=== PATIENT | male | born 1945 | race Caucasian/White ===

== ENCOUNTER 2017-01-21 10:22 | Inpatient (IN) | payer OTHER ==
[~2017-01-21 10:22] MED LIST: ACETAMINOPHEN 325 MG TAB PO ONE; CEFAZOLIN 2 GM/DEXTR 100 ML IV ONE; CHLORHEXIDINE GLUC HIBICLENS 118 ML BTL TP ONE; DEXAMETHASONE 4 MG/ML VIAL IVP ONE; FAMOTIDINE 20 MG TAB PO ONE; ROPI/epiNEPH/KETOROLAC JOINT COCKTAIL IU ONE; TRANEXAMIC ACID 3,000 MG in NS 50 ML IRR ONE
[2017-01-21] MEDS ORDERED: TRANEXAMIC ACID 3,000 MG/50 ML BAG IRR ONE (10:39)
[2017-01-21] MEDS ORDERED: FAMOTIDINE 20 MG TAB ONE (10:51)
[2017-01-21] MEDS ORDERED: LIDOCAINE 1% 2 ML INJ ONE (10:51)
[2017-01-21] MEDS ORDERED: DEXAMETHASONE 4 MG/ML VIAL ONE (10:51)
[2017-01-21] MEDS ORDERED: CEFAZOLIN 2 GM/DEXTROSE/100 ML BAG IV ONE (10:51)
[2017-01-21] MEDS ORDERED: ACETAMINOPHEN 325 MG TAB ONE (10:51)
[2017-01-21] MEDS ORDERED: LR 1,000 ML IV ONE (11:52)
[2017-01-21] MEDS ORDERED: LIDOCAINE 1% 5 ML SDV ID PRN (11:52)
[2017-01-21] MEDS ORDERED: MIDAZOLAM 2 MG/2 ML VIAL ONE (12:10)
[2017-01-21] MEDS ORDERED: PROPOFOL/EMULSION 500 MG/50 ML BOTTLE IV ONE ×2 (12:38→13:17)
[2017-01-21] MEDS ORDERED: diphenhydrAMINE 25 MG CAP PO PRN (12:55)
[2017-01-21] MEDS ORDERED: TEMAZEPAM 15 MG CAP PO PRN (12:55)
[2017-01-21] MEDS ORDERED: ONDANSETRON 4 MG/2 ML VIAL IVP PRN (12:55)
[2017-01-21] MEDS ORDERED: PROMETHAZINE HCL 25 MG SUPPR PR PRN (12:55)
[2017-01-21] MEDS ORDERED: POLYETHYLENE GLYCOL 3350 17 GM PKT PO PRN (12:55)
[2017-01-21] MEDS ORDERED: MAGNESIUM HYDROXIDE 30 ML UDCUP PO PRN (12:55)
[2017-01-21] MEDS ORDERED: PHARMACY PAIN CONSULT 1 EA MISC PRN (12:55)
[2017-01-21] MEDS ORDERED: BISACODYL 10 MG SUPP PR PRN (12:55)
[2017-01-21] MEDS ORDERED: METOCLOPRAMIDE 10 MG/2 ML VIAL IVP PRN (12:55)
[2017-01-21] MEDS ORDERED: LACTULOSE 20 GM/30 ML UDCUP PO PRN (12:55)
[2017-01-21] MEDS ORDERED: DIPHENOXYLATE/ATROPINE LOMOTIL 1 TAB PO PRN (12:55)
[2017-01-21] MEDS ORDERED: ONDANSETRON DISINTEGRATING 4 MG TAB PO PRN (12:55)
[2017-01-21] MEDS ORDERED: DIAZEPAM 5 MG TAB PO PRN (12:58)
[2017-01-21] MEDS ORDERED: LR 1,000 ML IV SCH (13:00)
--- NOTE | 2017-01-21 13:39 | POSTOPPROG ---
Post Op Note Date of Operation: 01/21/17 Surgeon: Anju James Marine Specialist: Juliann James PAc Anesthesiologist: Syd Anesthesia: Spinal Pre-op Diagnosis: L hip djd Post-op Diagnosis: same Indication: pain Procedure: L LAUREANO Findings: DJD hip Inf/Abcess present in the surg proc area at time of surgery?: No EBL: 100-500
[2017-01-21] MEDS: oxyCODONE IR 5 MG TAB PO PRN ×3 (16:44→23:45)
[2017-01-21] MEDS ORDERED: ATORVASTATIN CALCIUM 10 MG TAB PO SCH (18:00)
[2017-01-21] MEDS ORDERED: CARVEDILOL 6.25 MG TAB PO SCH (18:00)
[2017-01-21] MEDS: ACETAMINOPHEN 325 MG TAB PO SCH ×2 (18:30→23:45)
[2017-01-21] MEDS: CARVEDILOL 6.25 MG TAB PO SCH (19:47)
[2017-01-21] MEDS: CYCLOBENZAPRINE 10 MG TAB PO PRN (19:48)
[2017-01-21] MEDS: FAMOTIDINE 20 MG TAB PO SCH (19:48)
[2017-01-21] MEDS: ASPIRIN 325 MG TAB PO SCH (19:48)
[2017-01-21] MEDS: SENNOSIDES/DOCUSATE SODIUM TAB PO SCH (19:49)
[2017-01-21] MEDS: ceFAZolin 2 GM/DEXTROSE 100 ML IV SCH (19:51)
--- NOTE | 2017-01-22 04:16 | GOP ---
[f rep st] OPERATIVE REPORT DATE OF OPERATION: 01/21/2017 SURGEON: Helen James MD [employer] TEAM LEADER: PHILL Garrett ANESTHESIA: Spinal. PREOPERATIVE DIAGNOSIS: Left hip osteoarthritis. POSTOPERATIVE DIAGNOSIS: Left hip osteoarthritis. PROCEDURE PERFORMED: Total hip arthroplasty with x-ray. FINDINGS: ESTIMATED BLOOD LOSS: 30 cc. INDICATIONS: The patient has progressively worsening arthritis of the hip which has failed medical management. The patient understands the treatment options including continued non-operative care an d has selected surgical intervention. The patient has decided to undergo total hip arthroplasty via the direct anterior approach, understanding the risks of the procedure including, but not limited t o, neurovascular injury, infection, persistent pain, component wear and loosening, deep venous throm bosis, pulmonary embolism, limb length inequality, hip instability (including dislocation), and intr a-operative fractures. DESCRIPTION OF PROCEDURE: After proper identification of the patient including verification and mar rose the surgical site, the patient was brought to the operating room and placed in the supine posit ion. All bony prominences were well padded. Anesthesia was induced without complication and intrav enous prophylactic antibiotics were administered prior to skin incision. The operative leg was placed in the Trumpf Arch table extension and the well leg in a [place] leg h older. The patient was prepped and draped in the usual sterile fashion. The C-arm was draped for i ntra-operative fluoroscopy to check acetabular position, femoral component position including leg le ngth and femoral offset. Attention was then drawn to surgical exposure of the hip. An incision was made with a #10 [place] er blade starting 3 cm lateral and 3 cm distal to the anterior superior iliac spine measuring 8-10 c m and coursing distally toward the greater trochanter. The skin and subcutaneous tissues were divid ed sharply down to the fascia jamari. The fascia jamari was incised in line with the skin incision expo sing the underlying tensor fascia jamari muscle. The muscle was bluntly elevated from the fascia and the first extracapsular Cobra retractor was placed laterally at the junction of the superior femoral neck and greater trochanter. The lateral femoral circumflex vessels were identified, cauterized, a nd divided with the Aquamantys bipolar cautery. The deep investing fascia of the TFL was divided to allow proper mobilization of the muscle preventing damage during the retraction. The reflected hea d of the rectus femoris muscle was elevated off the anterior hip capsule and a medial Cobra retracto r was placed just proximal to the lesser trochanter. The anterior capsulotomy was made sharply from the superolateral acetabulum to the saddle junction o f the superior femoral neck and greater trochanter, then coursing inferomedial towards the lesser tr ochanter. The retractors were then placed in the intracapsular position for femoral neck osteotomy. Corresponding to pre-operative templating, the osteotomy was made with the oscillating saw careful ly protecting the greater trochanter and soft tissues. The femoral head was removed from the acetab ulum with a corkscrew and confirmed to be severely arthritic with exposed bone, deformity and osteop hytes. Similar findings were confirmed in the acetabulum. The Arch table extension was then placed in 40 degrees external rotation. Attention was then drawn to the acetabular preparation. After placement of the anterior and posteri or Cobra retractors outside the labrum and intracapsular, the circumferential labrum was removed sha rply. The foveal contents were then removed and hemostasis obtained with cautery. The first reamer selected was sized using the removed femoral head. Reaming began with medializatio n and then commenced in 2 mm increments at 45 degrees of abduction and 15 degrees of anteversion usi ng fluoroscopic navigation. Reaming ceased 1 mm less than the definitive acetabular component and c orresponded to the pre-operative templating. The final acetabular component was inserted using fluo roscopy to achieve proper orientation yielding excellent purchase and stability in the acetabulum. The final acetabular liner was then placed and its seating confirmed. Attention was then turned to the femur. The Arch table extension was placed in extension and adduct ion, delivering the osteotomized femoral neck into the wound. A 2-pronged femoral elevator was plac ed at the calcar and another at the tip of the greater trochanter. The posterolateral capsule was r eleased with cautery allowing mobilization of the femur lateral and anterior for preparation. The e xternal rotators were visualized and preserved. A curette and rongeur were used to open the startin g point for broaching. Serial broaching started with the #0 broach and ended with the broach that e xhibited excellent fit in the proximal femur. A change in pitch during mallet strikes was accompani ed by the inability to advance the broach any further. The trial reduction was performed and fluoro scopic navigation was utilized to check limb length. Adjustments were made to equalize limb length accordingly. After the final trials were accepted they were removed and the wound was copiously lavaged. The fem oral component was seated to the same depth as the final broach and the femoral head was impacted on to the clean trunnion. The hip was then reduced for the final time and once more fluoroscopy was us ed to check that limb length equality was achieved. The wound was irrigated and closed in layers, the fascia jamari with 2-0 Quill, the subcutaneous tissu e with 2-0 Quill, and the skin with Dermabond. Sterile dressings were applied. Final sharps and sp onge counts were accurate. The patient was then transferred to a hospital bed and brought to the re covery room in stable condition. IMPLANTS: Accolade II, size 6 at 127. Acetabular component 54 mm Tritanium. The liner is a Triden t X3 at 36 mm. The head is a Biolox Delta 36 mm -2.5. /[id number]/MODL
[2017-01-22] MEDS: ceFAZolin 2 GM/DEXTROSE 100 ML IV SCH (05:05)
[2017-01-22] MEDS: ACETAMINOPHEN 325 MG TAB PO SCH ×2 (05:07→12:05)
[2017-01-22] MEDS: oxyCODONE IR 5 MG TAB PO PRN ×3 (05:08→12:05)
[2017-01-22 05:30] LABS: HEMATOCRIT 29.4 % (40.0-51.0); HEMOGLOBIN 9.9 g/dL (13.7-17.5)
[2017-01-22] MEDS: CARVEDILOL 6.25 MG TAB PO SCH (08:35)
[2017-01-22] MEDS: SENNOSIDES/DOCUSATE SODIUM TAB PO SCH (08:35)
[2017-01-22] MEDS: FAMOTIDINE 20 MG TAB PO SCH (08:35)
[2017-01-22] MEDS: ASPIRIN 325 MG TAB PO SCH (08:36)
[2017-01-22] MEDS ORDERED: TAMSULOSIN HCL 0.4 MG CAP PO SCH (09:00)
[2017-01-22] MEDS ORDERED: IRBESARTAN 75 MG TAB PO SCH (09:00)
[2017-01-22 09:51] VITALS: BP 103/52; PULSE 67; RESP 18; TEMP 98
--- NOTE | 2017-01-22 11:43 | SOAPPROG ---
SOAP Progress Note Assessment/Plan: Assessment: Patient is doing well POD 1 s/p L LAUREANO Pain management: pain is well controlled on oral pain meds. VTE ppx: recommend aspirin daily for 3 weeks, cont LORENZO and SCDs Anemia: level is expected initially postop. Asymptomatic. Continue to monitor D/c planning: d/c to home today pending release from PT postop urinary retention: straight cath'd yesterday, resolved today Plan: 01/22/17 11:42 Subjective: Yahir is doing well today, denies SOB, chest pain and N/v. Objective: Vital Signs Temp Pulse Resp BP Pulse Ox 36.7 C 67 18 103/52 L 90 L 01/22/17 09:47 01/22/17 09:47 01/22/17 09:47 01/22/17 09:47 01/22/17 09:47 Laboratory Results 01/22/17 05:13 01/21/17 01/22/17 01/23/17 05:59 05:59 05:59 Intake Total 3360 Output Total 1250 100 Balance 2110 -100 LLE: incision dressing is clean and dry, NVI, +pf/df ICD10 Worksheet Patient Problems: Problems Problem Status Onset Primary localized osteoarthritis of left hip Acute AMI (acute myocardial infarction) Acute Atrial flutter, paroxysmal Acute CAD (coronary artery disease), [place] coronary artery Acute KRYSTEN on CPAP Acute
[2017-01-22 12:07] VITALS: O2SAT 94
--- NOTE | 2017-01-22 12:07 | GDS ---
[f rep st] DISCHARGE SUMMARY ADMISSION DIAGNOSIS: Left hip osteoarthritis. DISCHARGE DIAGNOSIS: Left hip osteoarthritis. PROCEDURE: Left total hip arthroplasty. VTE PROPHYLAXIS: Recommend patient resume aspirin. BRIEF DESCRIPTION OF HOSPITAL STAY: Patient was admitted for an elective joint arthroplasty. The p atient tolerated the procedure well and has passed physical therapy. The patient was given appropri ate antibiotic prophylaxis and venous thromboembolism prophylaxis. The patient's pain was well cont rolled on oral pain medication, patient was holding down food, and had urinated. Decision was made to discharge the patient. The patient was given post-operative prescriptions pre-operatively. PLAN: Please follow up with Dr. aJmes at [facility] as scheduled, February 12 t 11:15 a.m. /[id number]/MODL
[2017-01-22] MEDS: CYCLOBENZAPRINE 10 MG TAB PO PRN (12:50)
== END 2017-01-22 13:24 | disposition home or self-care (01) | DRG 470 ==
LOC: F3E 10:22 → F3N 15:03
PROVIDERS: ADMIT Orthopaedic Surgery; ATTEND Orthopaedic Surgery
PROC: 0SRB04Z Replacement of Left Hip Joint with Ceramic on Polyethylene Synthetic Substitute, Open Approach (ICD-10-PCS; principal; 2017-01-21 12:15)
DX: M16.12 Unilateral primary osteoarthritis, left hip (principal); I25.10 Atherosclerotic heart disease of native coronary artery without angina pectoris; I10 Essential (primary) hypertension; G47.33 Obstructive sleep apnea (adult) (pediatric)
CPT/HCPCS: 97161-GP; 97165-GO; G8978-GP-CI; G8979-GP-CI; G8980-GP-CI; J0171; J0690; J1100; J1885; J2250; J2704; J2795